=== PATIENT | female | born 1980 | race Caucasian/White ===

== ENCOUNTER 2019-12-27 15:20 | Emergency (ER) | payer BC, SELFPAY ==
[2019-12-27 15:38] VITALS: BP 133/75; PULSE 87; RESP 20; TEMP 36.8; O2SAT 99; BMI 29.8
--- NOTE | 2019-12-27 15:43 | HMH.EDUTC ---
[facility] [place] Clinical Impression: Poison abel dermatitis Disposition: Home, Self-Care Condition on Discharge: Good Instructions: Poisonous Plants: [place], [place], and [place]: Beware the Oils, Poison [place], Poison [place], Poison [place], DI for Poison [place] Allergy, DI for Hives Additional Instructions: Cool compresses may help with itching and irritation from the rash *Over the counter Benadryl may help with itching *Over the counter Calamine lotion may help to dry up the rash and help to clear blisters Return if needed Straight to ER if any life threatening symptoms Follow up with Family doctor if no improvement or if symptoms return Start oral steriods tomorrow Prescriptions: predniSONE [Prednisone 10mg Tab Dose-Pack] 10 mg PO UD DOSE PK 12 Days #42 pack Transmission Status: Received by [facility] Referrals: Kiersten Dan [Primary Care Provider] - As needed Time of Disposition: 16:27 Medical Decision Making - Armando Inquiry Pt receiving controlled substance: No Armando was queried for this patient: No Vital Signs: 12/27/19 15:38 12/27/19 16:02 Temperature 98.2 F 98.2 F Temperature Source Oral Pulse Rate 87 Pulse Rate [Right Brachial] 87 Respiratory Rate 20 20 Blood Pressure 133/75 Blood Pressure [Right Arm] 133/75 Blood Pressure Mean [Right Arm] 94 Blood Pressure Source [Right Arm] Automatic Cuff Blood Pressure Position [Right Arm] Sitting 02 Sat by Pulse Oximetry 99 Oxygen Delivery Method Room Air Orders (Tests/Meds): ED MEDICATIONS Discontinued Medications Generic Name Dose Route Start Last Admin Trade Name Freq PRN Reason Stop Dose Admin Loratadine 10 mg 12/27/19 15:44 12/27/19 15:58 Claritin 10mg Tablet PO 12/27/19 15:45 10 mg ONCE ONE Administration Methylprednisolone Sodium Succinate 125 mg 12/27/19 15:44 12/27/19 15:58 Solu-Medrol 125mg/2ml Vial IM 12/27/19 15:45 125 mg ONCE ONE Administration [facility] [place] - General Stated complaint: poison abel Time Seen by Provider: 12/27/19 15:44 Mode of Arrival: Ambulatory Source of Information: Patient Limitations: No Limitations Description of Symptoms (Recalled from Triage Doc. by RN): PATIENT C/O RASH (POSSIBLE POISON ABEL) TO BILATERAL ARMS AND TRUNK X 2 WEEKS HEENT Symptoms (Recalled from RN notes): No Resp Symptoms (Recalled from RN notes): No Skin Symptoms (Recalled from RN notes): Yes MS Symptoms (Recalled from RN notes): No Functional Status (Recalled from RN notes): WNL - History of Present Illness Provider Complaint: Patient states that she had poison abel about a month ago for over 2 weeks and she had to see PCP for it States that about 2 weeks ago they was clearing the fence line and she noticed she had a couple spots on her right forearm and she started using calamine lotion and treating it with OTC stuff States that for the last several days she noticed she was breaking out again and has continued to get worse States thats that now she has it on both arms, and abdomen and starting to come up her neck - Related Data Previous Rx's Medication Instructions Recorded predniSONE [Prednisone 10mg Tab 10 mg PO UD DOSE PK 12 Days #42 12/27/19 Dose-Pack] pack Allergies Allergy/AdvReac Type Severity Reaction Status Date / Time No Known Allergies Allergy Verified 12/27/19 15:43 - Worker's Comp Is this a Worker's Comp case?: No [facility] History - Hepatitis A Screen Drug use history?: No High risk sexual behaviors?: No History of sexually transmitted infection?: No Currently employed?: No Childcare worker?: No Do you have indoor plumbing?: Yes Do you have electricity?: Yes Attestation statement:: This patient has been screened for Hepatitis A risk factors. I have reviewed the patient's past medical history: Yes Other Medical History: Reports: Sinus Problems Laterality Cases: Bilateral: Tonsillectomy Other Surgeries: Yes: , Sinus Surgery, Tubal Ligation, Other Comment: lith
[2019-12-27 16:02] VITALS: BP 133/75; PULSE 87; RESP 20; TEMP 36.8; O2SAT 99
== END 2019-12-27 16:32 | disposition home or self-care (01) ==
PROVIDERS: Emergency Provider Nurse Practitioner; PCP Family Medicine
DX: L23.7 Allergic contact dermatitis due to plants, except food (principal); Z87.891 Personal history of nicotine dependence; Z90.09 Acquired absence of other part of head and neck
CPT/HCPCS: 96372; 99201

== ENCOUNTER 2020-03-18 18:47 | Emergency (ER) | payer BC, SELFPAY ==
[2020-03-18 19:03] VITALS: BP 153/78; PULSE 73; RESP 16; TEMP 36.6; O2SAT 98; BMI 31.3
--- NOTE | 2020-03-18 19:13 | HMH.EDBACK ---
ED Disposition Clinical Impression: Strain of lumbar region Qualifiers: Encounter type: sequela Qualified Code(s): S39.012S - Strain of muscle, fascia and tendon of lower back, sequela Disposition: Home, Self-Care Condition on Discharge: Good Instructions: DI for Low Back Pain Prescriptions: Cyclobenzaprine HCl [Cyclobenzaprine 5mg Tab] 5 mg PO Q8HP PRN #30 tab PRN Reason: pain/spasm [facility] Ketorolac Tromethamine [Toradol 10mg tablet] 10 mg PO Q6H 5 Days #20 tab [facility]: [facility] Referrals: Kiersten Dan [Primary Care Provider] - - Critical Care Critical Care Time: No Attestation: On 03/18/20, the high probability of a clinically significant, sudden or life threatening deterioration of the following system(s) required my full and direct attention, intervention and personal management. The time I documented below is in addition to time spent performing reported procedures but includes the following listed in this critical care notation. Medical Decision Making - Medical Records Medical records reviewed: Yes: I reviewed the patient's medical records. - Armando Inquiry Pt receiving controlled substance: No Vital Signs: 03/18/20 19:03 Temperature 97.8 F Temperature Source Oral Pulse Rate [Right Brachial] 73 Respiratory Rate 16 Blood Pressure [Right Arm] 153/78 H Blood Pressure Mean [Right Arm] 103 02 Sat by Pulse Oximetry 98 Oxygen Delivery Method Room Air Orders (Tests/Meds): ED MEDICATIONS Generic Name Dose Route Start Last Admin Trade Name Freq PRN Reason Stop Dose Admin Sodium Chloride 1,000 mls @ 999 mls/hr 03/18/20 19:15 03/18/20 19:16 Sod Chlor 0.9% 1000ml Bag IV 03/18/20 20:15 999 mls/hr .Q1H1M REE Administration ORDERS Category Date Time Status CT lumbar spine wo con Stat Cat Scan 03/18/20 19:[address] thoracic spine wo con Stat Cat Scan 03/18/20 19:09 Ordered Basic Metabolic Panel Stat Lab 03/18/20 19:09 Ordered Complete Blood Count Auto Diff Stat Lab 03/18/20 19:09 Ordered Urinalysis and Microscopic Stat Lab 03/18/20 19:09 Ordered Urine , HCG Qual. Stat Lab 03/18/20 19:13 Ordered Back Pain HPI - General Chief Complaint: Back Pain/Injury Stated Complaint: Back spams with back pain Time Seen by Provider: 03/18/20 19:14 Mode of Arrival: Family Vehicle Source of Information: Patient Limitations: No Limitations Description of Symptoms (Recalled from ER Triage Doc. by RN): chronic back pain: pt presents with lumbar area muscle tightness, no known injury - History of Present Illness HPI Narrative: This is a 39-year-old female who presents with 1 week of intermittent low back pain with muscle spasm. She denies any injury or trauma to the low back. Pain goes across the lower back but does not radiate to the lower extremities. Pain is aching and constant improved mildly with deep tissue massage. No paresthesias or numbness no loss of bowel or bladder function. Pain is rated at 7 out of 10 in intensity and is worse with flexion and extension at the lumbar spine. - Related Data Previous Rx's Medication Instructions Recorded predniSONE [Prednisone 10mg Tab 10 mg PO UD DOSE PK 12 Days #42 12/27/19 Dose-Pack] pack Cyclobenzaprine HCl 5 mg PO Q8HP PRN #30 tab 03/18/20 [Cyclobenzaprine 5mg Tab] Ketorolac Tromethamine [Toradol 10 mg PO Q6H 5 Days #20 tab 03/18/20 10mg tablet] Allergies Allergy/AdvReac Type Severity Reaction Status Date / Time No Known Allergies Allergy Verified 12/27/19 15:43 [facility] History - Hepatitis A Screen Drug use history?: No High risk sexual behaviors?: No History of sexually transmitted infection?: No Currently employed?: No Childcare worker?: No Do you have indoor plumbing?: Yes Do you have electricity?: Yes Attestation statement:: This patient has been screened for Hepatitis A risk factors. I have
[2020-03-18 19:23] VITALS: BP 111/71; PULSE 79; RESP 16; TEMP 36.7; O2SAT 97
[2020-03-18 19:35] LABS: Basophils # 0.1 K/mm3 (0-0.2); Basophils % 0.7 % (0.1-2.0); Eosinophils # 0.4 K/mm3 (0.0-0.4); Eosinophils % 4.1 % (0.1-12.0); Hematocrit 41.8 % (37.0-47.0); Hemoglobin 14.1 g/dL (12.2-16.2); Lymphocytes # 2.9 K/mm3 (0.7-4.5); Lymphocytes % 29.5 % (10-50); Mean Corpuscular HGB Conc 33.8 g/dL (31.8-35.4); Mean Corpuscular Hemoglobin 30.5 pg (27.0-31.2); Mean Corpuscular Volume 90.2 fl (81-99); Mean Platelet Volume 7.6 fl (7.4-10.4); Monocytes # 0.6 K/mm3 (0.1-1.0); Neutrophils # 5.8 K/mm3 (1.8-7.8); Neutrophils % 59.7 % (37.0-80.0); Platelet Count 358 K/mm3 (142-424); Red Blood Count 4.63 M/mm3 (4.20-5.40); White Blood Count 9.7 K/mm3 (4.8-10.8)
[2020-03-18 19:43] LABS: Anion Gap 12.6 mEq/L (5-15); Blood Urea Nitrogen 13 mg/dl (7-17); Calcium 9.3 mg/dl (8.4-10.2); Carbon Dioxide 27 mmol/L (22.0-30.0); Chloride 104 mmol/L (98-107); Creatinine Clearance Estimated 189 mL/min (50-200); Estimated Glomerular Filt Rate 112 ml/min (>60); GFR (African American) 136 ML/MIN (>60); Glucose 98 mg/dl (74-100); Potassium 3.6 mmoL/L (3.5-5.1); Sodium 140 mmol/L (136-145)
[2020-03-18 19:49] LABS: HCG Qualitative, Serum Negative (Negative)
== END 2020-03-18 19:41 | disposition home or self-care (01) ==
PROVIDERS: Emergency Medicine; Emergency Provider Emergency Medicine; PCP Family Medicine
DX: S39.012A Strain of muscle, fascia and tendon of lower back, initial encounter (principal); Z87.891 Personal history of nicotine dependence; Z90.09 Acquired absence of other part of head and neck
CPT/HCPCS: 80048; 84703; 85025; 96365; 96375; 99282

== ENCOUNTER 2022-01-26 10:20 | Emergency (ER) | payer BC, SELFPAY ==
[2022-01-26 11:10] VITALS: BP 147/85; PULSE 91; RESP 18; TEMP 37.3; O2SAT 100; BMI 31.2
--- NOTE | 2022-01-26 11:40 | HMH.EDUTC ---
[facility] [place] Disposition Clinical Impression: Bronchitis Sinusitis Qualifiers: Sinusitis location: unspecified location Chronicity: unspecified Qualified Code(s): J32.9 - Chronic sinusitis, unspecified Disposition: Home, Self-Care Condition on Discharge: Good Instructions: Sinusitis, DI for Sinusitis, DI for Acute Bronchitis Additional Instructions: ? Start antibiotic today. Be sure to complete entire prescription even if feeling better ? Monitor temp. Tylenol every 4 hours as needed and / or ibuprofen every 6 hours as needed ( As long as your primary care physician has told you that it ok to take both. For fever/aches/pains ER if no less than 101 despite Tylenol or Motrin ? Humidifier/vaporizer or hot steamy shower ? Inhaler every 4-6 hours as needed like we discussed. If unsure how to use it, ask pharmacist to demonstrate how. Should help open airways and improve cough, wheezing, and shortness of breath ? Mucinex for your cough and chest congestion Be sure to drink lots of water. *Start steroid today. Helps with inflammation therefore, cough and wheezing. Follow directions on the package. Reviewed side effects. Patient reports taking them before. Follow up IMMEDIATELY for new or worsening of symptoms OR no noticeable improvement over the next 48-72 hours. 911 immediately for any life threatening symptoms such as chest pain or difficulty breathing Prescriptions: Albuterol Sulfate [Proventil-HFA 90mcg/puff Inh] 1 - 2 puffs IH Q6HP PRN #1 each PRN Reason: Shortness Of Breath [facility] guaiFENesin [Mucinex 600mg tablet] 1 - 2 tab PO Q12HP PRN #20 tab PRN Reason: Congestion Transmission Status: [facility] Amoxicillin/Potassium Clav [Amox-Clav 875-125 mg Tablet] 1 tab PO BID #20 tab Transmission Status: [facility] predniSONE [Prednisone 20mg Tab] 20 mg PO BID 5 Days #10 tab Transmission Status: [facility] Referrals: Josiah Parker MD [Primary Care Provider] - As needed Time of Disposition: 11:51 Medical Decision Making - Armando Inquiry Pt receiving controlled substance: No Armando was queried for this patient: No Vital Signs: 01/26/22 11:10 Temperature 99.1 F Temperature Source Oral Pulse Rate [Right Brachial] 91 H Respiratory Rate 18 Blood Pressure [Right Arm] 147/85 H Blood Pressure Mean [Right Arm] 105 Blood Pressure Source [Right Arm] Automatic Cuff Blood Pressure Position [Right Arm] Sitting 02 Sat by Pulse Oximetry 100 Oxygen Delivery Method Room Air [facility] [place] HPI - General Stated complaint: cough congestion Time Seen by Provider: 01/26/22 11:40 Mode of Arrival: Ambulatory Source of Information: Patient Limitations: No Limitations Description of Symptoms (Recalled from Triage Doc. by RN): PATIENT C/O COUGHING WITH MUCOUS THAT CAUSES HER TO VOMIT AT TIMES X 1 WEEK HEENT Symptoms (Recalled from RN notes): No Resp Symptoms (Recalled from RN notes): Yes Skin Symptoms (Recalled from RN notes): No MS Symptoms (Recalled from RN notes): No Functional Status (Recalled from RN notes): WNL - History of Present Illness Provider Complaint: Patient states that she has been having sinus pain/pressure with drainage in the back of her throat and cough for about a week States that it feels like it is trying to move into her chest and at times she is coughing so hard it makes her vomit States that today she was having some pressure behind her eyes so she came in to get checked out - Related Data Home Medications Medication Instructions Recorded Confirmed lamoTRIgine [Lamictal 100mg Tablet] 100 mg PO DAILY 01/26/22 01/26/22 norethindrone-e.estradioL-iron [Lo 1 tab PO DAILY 01/26/22 01/26/22 Loestrin Fe 1-10 Tablet] Previous Rx's Medication Instructions Recorded Albuterol Sulfate [Proventil-HFA 1 - 2 puffs IH Q6HP PRN #1 each 01/26/22 90mcg/puff Inh] Amoxicillin/Potassium Clav 1 tab PO
[2022-01-26 12:01] VITALS: BP 119/79; PULSE 79; RESP 20; TEMP 37; O2SAT 100
== END 2022-01-26 12:01 | disposition home or self-care (01) ==
PROVIDERS: Emergency Provider Nurse Practitioner; PCP Family Medicine
DX: J32.9 Chronic sinusitis, unspecified (principal); J20.9 Acute bronchitis, unspecified; Z87.891 Personal history of nicotine dependence
CPT/HCPCS: 99212; G0463

== ENCOUNTER → 2023-07-02 11:15 | Outpatient (CLI) | payer BC, SELFPAY ==
[2023-07-02 09:41] LABS: Basophils # 0.1 K/mm3 (0-0.2); Basophils % 0.9 % (0.1-2.0); Eosinophils # 0.3 K/mm3 (0.0-0.4); Eosinophils % 3.4 % (0.1-12.0); Hematocrit 42.6 % (37.0-47.0); Hemoglobin 14.9 g/dL (12.2-16.2); Lymphocytes # 2.4 K/mm3 (0.7-4.5); Lymphocytes % 28.3 % (10-50); Mean Corpuscular Hemoglobin 32.3 pg (27.0-31.2); Mean Corpuscular Volume 92.2 fl (81-99); Mean Platelet Volume 8.2 fl (7.4-10.4); Monocytes # 0.5 K/mm3 (0.1-1.0); Monocytes % 6.2 % (1.7-9.3); Neutrophils # 5.1 K/mm3 (1.8-7.8); Neutrophils % 61.2 % (37.0-80.0); Platelet Count 431 K/mm3 (142-424); Red Blood Count 4.62 M/mm3 (4.20-5.40); White Blood Count 8.4 K/mm3 (4.8-10.8)
[2023-07-02 11:13] LABS: Alanine Aminotransferase 27 U/L (12-78); Albumin Level 4.1 g/dl (3.5-5.0); Albumin/Globulin Ratio 1.6 (1.1-1.8); Alkaline Phosphatase 53 U/L (38-126); Anion Gap 15.5 mEq/L (5-15); Aspartate Amino Transferase 35 U/L (14-36); Bilirubin,Total 0.2 mg/dl (0.2-1.3); Blood Urea Nitrogen 12 mg/dl (7-17); Carbon Dioxide 21 mmol/L (22.0-30.0); Chloride 105 mmol/L (98-107); Chol/HDL Ratio 4.7 (1-3.5); Cholesterol 201 mg/dl (140-200); Estimated Glomerular Filt Rate 93 ml/min (>60); GFR (African American) 112 ML/MIN (>60); Globulin 2.6 g/dL (1.3-3.2); Glucose 86 mg/dl (74-100); HDL Cholesterol 43 mg/dl (40-60); Potassium 4.5 mmoL/L (3.5-5.1); Sodium 137 mmol/L (136-145); Total Protein,Serum 6.7 g/dl (6.3-8.2); Triglycerides 233 mg/dl (30-150); VLDL Cholesterol 47 mg/dL (0-40)
[2023-07-02 11:24] LABS: Direct LDL Cholesterol 123.83 mg/dL (100-129)
[2023-07-02 11:42] LABS: Thyroid Stimulating Hormone 0.86 uIU/mL (0.465-4.68)
[2023-07-02 11:59] LABS: Hemoglobin A1C 5.3 % (4.0-6.0)
[2023-07-02 12:01] LABS: Vitamin B12 234 pg/mL (239-931)
[2023-07-02 13:12] LABS: Ferritin 20.8 ng/ml (6.24-137)
[2023-07-03 12:32] LABS: C-Peptide 3.4 ng/mL (1.1-4.4)
== END ==
PROVIDERS: PCP Nurse Practitioner Family; Visit Provider Nurse Practitioner Family
DX: E16.2 Hypoglycemia, unspecified (principal); R63.5 Abnormal weight gain; D50.9 Iron deficiency anemia, unspecified; F32.9 Major depressive disorder, single episode, unspecified; Z13.220 Encounter for screening for lipoid disorders; Z68.32 Body mass index [BMI] 32.0-32.9, adult
CPT/HCPCS: 80053; 80061; 82607; 82728; 83036; 83525; 84443; 84681; 85025

== ENCOUNTER → 2023-07-21 08:18 | Outpatient (CLI) | payer BC, SELFPAY ==
[2023-07-21 17:04] LABS: Coronavirus 19, PCR Not Detected (NotDetected); Influenza A, PCR Not Detected (NotDetected); Influenza B, PCR Not Detected (NotDetected)
== END ==
PROVIDERS: PCP Nurse Practitioner Family; Visit Provider Nurse Practitioner Family
DX: R05.9 Cough, unspecified (principal); R09.81 Nasal congestion
CPT/HCPCS: 87636

== ENCOUNTER 2023-09-08 17:05 | Outpatient (CLI) | payer BC, SELFPAY ==
[2023-09-08 20:17] LABS: Vitamin B12 462 pg/mL (239-931)
== END 2023-09-08 23:59 ==
LOC: LAB.DROPOF 17:06
PROVIDERS: PCP Nurse Practitioner Family; Visit Provider Nurse Practitioner Family
DX: R79.89 Other specified abnormal findings of blood chemistry (principal); D50.9 Iron deficiency anemia, unspecified
CPT/HCPCS: 82607

== ENCOUNTER 2023-09-17 16:20 | Outpatient (CLI) | payer BC, SELFPAY ==
--- NOTE | 2023-09-17 16:21 | MM_ITS ---
PROCEDURE INFORMATION: Exam: MG Bilateral Screening 3D Mammography Exam date and time: 09/17/2023 4:11 PM Age: 43 years old Clinical indication: Screening mammogram TECHNIQUE: Imaging protocol: Bilateral Screening tomosynthesis and 2D mammography including computer-aided detection (CAD) when performed. COMPARISON: 1. MG [place] DIAG MAMMO W/CAD RT 08/20/2022 3:31 PM 2. MG [place] SCRN MAMMO W/CAD BILAT 07/30/2022 4:41 PM 3. US BREAST LTD RT 03/27/2023 1:32 PM 4. US BREAST LTD RT 08/20/2022 3:55 PM FINDINGS: MAMMOGRAPHY: Breast composition: There are scattered areas of fibroglandular density. Mass: None. Architectural distortion: No new or suspicious architectural distortion. Calcifications: No new or suspicious calcifications are present Asymmetric density: No new or suspicious asymmetric density is present Skin thickening: None. Axillary adenopathy: None. IMPRESSION: No mammographic evidence of malignancy. Recommend annual screening mammography unless otherwise clinically indicated. ASSESSMENT: BI-RADS category 1: Negative
== END 2023-09-17 23:59 ==
LOC: RAD 16:21
PROVIDERS: PCP Nurse Practitioner Family; Visit Provider Nurse Practitioner Family
DX: Z12.39 Encounter for other screening for malignant neoplasm of breast (principal)
CPT/HCPCS: 77063; 77067

== ENCOUNTER 2023-11-04 21:02 | Outpatient (CLI) | payer BC, SELFPAY ==
[2023-11-04 18:16] LABS: Vitamin B12 441 pg/mL (239-931)
== END 2023-11-04 23:59 ==
LOC: LAB.DROPOF 21:02
PROVIDERS: PCP Nurse Practitioner Family; Visit Provider Nurse Practitioner Family
DX: R79.89 Other specified abnormal findings of blood chemistry (principal); Z79.899 Other long term (current) drug therapy
CPT/HCPCS: 82607

== ENCOUNTER 2023-11-17 16:47 | Outpatient (CLI) | payer BC, SELFPAY | END 2023-11-17 23:59 | LOC: LAB.DROPOF 16:49 | PROVIDERS: PCP Nurse Practitioner Family; Visit Provider Nurse Practitioner Family | DX: R39.15 Urgency of urination (principal); B96.89 Other specified bacterial agents as the cause of diseases classified elsewhere | CPT/HCPCS: 87086 ==

== ENCOUNTER 2023-12-03 13:55 | Outpatient (CLI) | payer OTHER, BC, SELFPAY ==
--- NOTE | 2023-12-03 13:56 | US_ITS ---
FINAL REPORT CLINICAL HISTORY: R31.0 - Gross hematuria COMPARISON: None FINDINGS: RENAL ULTRASOUND: The right kidney measures 11.7 cm in length. There is no evidence of focal mass or hydronephrosis in the right kidney. No perinephric fluid collections are identified. The left kidney measures 13.6 cm in size. There is an echogenic focus with posterior acoustical shadowing in the left kidney, 6 mm in size, likely a nonobstructing renal stone. IMPRESSION: No evidence of hydronephrosis. There is an echogenic focus in the left kidney, 6 mm in size, most likely a nonobstructing renal stone. Reviewed, Interpreted and Dictated by Miguelito Palma III, MD Transcribed by Love Lawson Authenticated and [facility]
--- NOTE | 2023-12-03 13:56 | US_ITS ---
FINAL REPORT CLINICAL HISTORY: Gross hematuria COMPARISON: None FINDINGS: BLADDER ULTRASOUND: Ultrasound examination of the distended bladder feels a maximum width of 8.4 cm. The bladder volume at distention is 197.99 cc. No focal masses are identified, no focal bladder wall thickening is present. Jets are seen during voiding, and the postvoid bladder volume is 18.22 cc. IMPRESSION: No focal mass is seen within the bladder, with postvoid volume as noted. Reviewed, Interpreted and Dictated by Miguelito Palma III, MD Transcribed by Love Lawson Authenticated and [facility]
== END 2023-12-03 23:59 ==
LOC: RAD 13:56
PROVIDERS: PCP Nurse Practitioner Family; Visit Provider Nurse Practitioner Family
DX: R31.0 Gross hematuria (principal)
CPT/HCPCS: 76770; 76857

== ENCOUNTER 2023-12-14 15:13 | Outpatient (CLI) | payer BC, OTHER, SELFPAY ==
--- NOTE | 2023-12-14 15:17 | US_ITS ---
PROCEDURE: US TRANSVAGINAL CLINICAL INDICATION: pelvic pain COMPARISON: No exams were available for comparison FINDINGS: Transvaginal and transabdominal sonographic images of the pelvis were obtained. UTERUS: 10.0cm x 5.5cmx 4.4cm anteverted with a combined endometrial thickness of 9.7mm. LEFT OVARY: 2.9 cmx2.4cmx2.7cm with a volume of 9.6ml. RIGHT OVARY: 1.7 cmx 2.7 cmx1.4cm with a volume of 3ml. Both ovaries are seen and appear normal. Doppler flow to both ovaries are seen. There is no fluid in the cul-de-sac. IMPRESSION: 1. Anteverted uterus normal in shape and size. 2. The endometrium is normal and measures 9.7 mm. 3. Difficult exam and the ovaries could not be seen transvaginally. Transabdominally the ovaries appear normal. 4. No fluid in the cul-de-sac. Dictated by: Brody Villarreal MD 12/14/2023 19:23 Brody Villarreal MD in OV 12/14/2023 19:23
== END 2023-12-14 23:59 | disposition home or self-care (01) ==
LOC: RAD 15:14
PROVIDERS: PCP Nurse Practitioner Family; Visit Provider Nurse Practitioner Family
DX: R10.2 Pelvic and perineal pain (principal)
CPT/HCPCS: 76830

== ENCOUNTER 2024-01-06 15:58 | Outpatient (POV) | payer BC, OTHER, SELFPAY | END 2024-01-06 23:59 | disposition home or self-care (01) | LOC: SC 15:58 | PROVIDERS: Visit Provider Specialist/Technologist | DX: Z00.00 Encounter for general adult medical examination without abnormal findings (principal) ==

== ENCOUNTER 2024-04-16 09:20 | Outpatient (CLI) | payer BC, OTHER, SELFPAY ==
[2024-04-16 09:34] LABS: Basophils # 0.1 K/mm3 (0-0.2); Basophils % 1.8 % (0.1-2.0); Eosinophils # 0.2 K/mm3 (0.0-0.4); Eosinophils % 2.7 % (0.1-12.0); Hematocrit 45.2 % (37.0-47.0); Hemoglobin 14.5 g/dL (12.2-16.2); Lymphocytes # 2.2 K/mm3 (0.7-4.5); Lymphocytes % 32.6 % (10-50); Mean Corpuscular Hemoglobin 30.2 pg (27.0-31.2); Mean Corpuscular Volume 94.4 fl (81-99); Monocytes # 0.5 K/mm3 (0.1-1.0); Monocytes % 6.8 % (1.7-9.3); Neutrophils # 3.8 K/mm3 (1.8-7.8); Neutrophils % 56.1 % (37.0-80.0); Platelet Count 420 K/mm3 (142-424); Red Blood Count 4.79 M/mm3 (4.20-5.40); Red Cell Distribution Width 13.2 % (11.5-17.5); White Blood Count 6.9 K/mm3 (4.8-10.8)
[2024-04-16 10:17] LABS: Albumin Level 4.1 g/dl (3.5-5.0); Chloride 105 mmol/L (98-107); Potassium 4.2 mmoL/L (3.5-5.1); Sodium 138 mmol/L (136-145)
[2024-04-16 10:20] LABS: Alanine Aminotransferase 31 U/L (12-78); Albumin/Globulin Ratio 1.6 (1.1-1.8); Alkaline Phosphatase 60 U/L (38-126); Anion Gap 10.2 mEq/L (5-15); Aspartate Amino Transferase 29 U/L (14-36); Bilirubin,Total 0.5 mg/dl (0.2-1.3); Blood Urea Nitrogen 13 mg/dl (7-17); Calcium 8.9 mg/dl (8.4-10.2); Carbon Dioxide 27 mmol/L (22.0-30.0); Estimated Glomerular Filt Rate 79 ml/min (>60); GFR (African American) 96 ML/MIN (>60); Globulin 2.6 g/dL (1.3-3.2); Glucose 81 mg/dl (74-100); Total Protein,Serum 6.7 g/dl (6.3-8.2)
[2024-04-16 11:53] LABS: Thyroid Stimulating Hormone 0.35 uIU/mL (0.465-4.68)
[2024-04-16 12:27] LABS: Ferritin 17.7 ng/ml (6.24-137)
[2024-04-16 13:12] LABS: Vitamin B12 377 pg/mL (239-931)
[2024-04-19 14:28] LABS: Free T4 (Free Thyroxine) 1.09 ng/dl (0.78-2.19)
== END 2024-04-16 23:59 | disposition home or self-care (01) ==
LOC: LAB 09:20
PROVIDERS: PCP Nurse Practitioner Family; Visit Provider Nurse Practitioner Family
DX: L65.9 Nonscarring hair loss, unspecified (principal); R79.89 Other specified abnormal findings of blood chemistry
CPT/HCPCS: 36415; 80053; 82607; 82728; 84439; 84443; 85025; 86140

== ENCOUNTER 2024-08-23 09:46 | Outpatient (CLI) | payer BC, OTHER, SELFPAY ==
[2024-08-23 12:35] LABS: Coronavirus 19, PCR Not Detected (NotDetected); Influenza B, PCR Not Detected (NotDetected)
[2024-08-23 17:58] LABS: Influenza A, PCR Detected (NotDetected)
== END 2024-08-23 23:59 | disposition home or self-care (01) ==
LOC: LAB.DROPOF 08-25 09:32
PROVIDERS: PCP Student in an Organized Health Care Education/Training Program; Visit Provider Student in an Organized Health Care Education/Training Program
DX: J09.X9 Influenza due to identified novel influenza A virus with other manifestations (principal); Z20.818 Contact with and (suspected) exposure to other bacterial communicable diseases; R05.1 Acute cough; Z87.891 Personal history of nicotine dependence
CPT/HCPCS: 87070; 87636

== ENCOUNTER 2024-09-23 13:31 | Outpatient (CLI) | payer BC, OTHER, SELFPAY ==
[2024-09-23 13:40] LABS: Uric Acid 2.4 mg/dl (2.5-6.2)
[2024-09-23 14:06] LABS: 25-OH Vitamin D, Total 36.9 ng/mL (30-100)
[2024-09-23 14:22] LABS: Erythrocyte Sedimentation Rate 11 mm/hr (0-20)
[2024-09-24 08:21] LABS: RA Latex Turbid. <10.0 IU/mL (<14.0)
[2024-09-27 11:10] LABS: Antinuclear Antibodies, IFA Negative (.)
== END 2024-09-23 23:59 | disposition home or self-care (01) ==
LOC: LAB.DROPOF 13:31
PROVIDERS: PCP Nurse Practitioner Family; Visit Provider Nurse Practitioner Family
DX: M25.50 Pain in unspecified joint (principal); E55.9 Vitamin D deficiency, unspecified; R63.5 Abnormal weight gain
CPT/HCPCS: 36415; 82306; 84550; 85651; 86038; 86431

== ENCOUNTER 2024-10-10 16:43 | Outpatient (CLI) | payer BC, OTHER, SELFPAY ==
--- NOTE | 2024-10-10 16:45 | MM_ITS ---
PROCEDURE INFORMATION: Exam: MG Bilateral Screening 3D Mammography Exam date and time: 10/10/2024 4:48 PM Age: 44 years old Clinical indication: Screening examination TECHNIQUE: Imaging protocol: Bilateral Screening tomosynthesis and 2D mammography including computer-aided detection (CAD) when performed. COMPARISON: 1. MG MM DIG SCREENING MAMM BI W/CAD 09/17/2023 4:11 PM 2. MG [place] DIAG MAMMO W/CAD RT 08/20/2022 3:31 PM FINDINGS: MAMMOGRAPHY: Breast composition: There are scattered areas of fibroglandular density. Mass: None. Architectural distortion: None. Calcifications: No suspicious calcifications. Asymmetric density: None. Skin thickening: None. Axillary adenopathy: None. IMPRESSION: No mammographic evidence of malignancy. Annual screening is recommended unless otherwise clinically indicated. ASSESSMENT: BI-RADS Category 1: Negative.
== END 2024-10-10 23:59 | disposition home or self-care (01) ==
LOC: RAD 16:45
PROVIDERS: PCP Nurse Practitioner Family; Visit Provider Nurse Practitioner Family
DX: Z12.31 Encounter for screening mammogram for malignant neoplasm of breast (principal)
CPT/HCPCS: 77063; 77067

== ENCOUNTER 2024-12-14 15:35 | Outpatient (CLI) | payer BC, OTHER, SELFPAY ==
--- OUTSIDE RECORDS SUMMARY | 2024-12-15 09:06 | XMS_ITS | Data Portability ---
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 Plan of Treatment Reminders Order Date Submit Date Provider Last Modified By Organization Details Last Modified Time Details Appointments None recorded. Lab urinalysis, dipstick 2023 024 [email or web address] [facility] [address], [address], 4 11:53:51 influenza virus A + B + SARS-CoV-2 (COVID19) Ag panel, rapid IA, upper respiratory specimen 2022 [email or web address], [place], [address], 3 09:02:35 rapid flu (A+B) 2021 022 [email or web address], [place], [address], 2 09:54:46 Referral None recorded. Procedures bladder scan (PROC) 2023 024 [email or web address] [facility] [address], [address], 4 11:53:51 Surgeries None recorded. Imaging None recorded. Medication Orders Gemtesa 75 mg tablet 2023 024 [email or web address] [facility], [address] [facility], [place], [address], 4 22:06:04 dicyclomine 10 mg capsule 2022 023 [email or web address] [facility] 5[facility], [address], [address], 4 09:09:25 Zofran 4 mg tablet 2022 023 [email or web address] [facility]91, [address], [address], 3 08:43:33 Patient TargetsNo targets recorded. Patient InstructionsNo instructions recorded. Reason for Referral None Reported. Results Created Date Observation Date Name Description Value Unit Range Abnormal Flag Note LastModifiedBy Organization Detail LastModifiedTime 08/04/20 22 08/04/2022 rapid flu (A+B) Flu A negati ve Not Available [address], [place], [address], 08/04/2022 08:38:05 08/04/20 22 08/04/2022 rapid flu (A+B) Flu B negati ve Not Available [address], [place], [address], 08/04/2022 08:38:05 12/09/19 23 12/08/2022 influ iraida virus A + B + SARS- CoV-2 (COVI D19) Ag panel , rapid IA, upper respi rator y speci men FLU A negati ve Not Available [address], [place], [address], 12/08/2022 08:42:26 12/09/19 12/08/2022 influ iraida virus A + B + SARS- CoV-2 (COVI D19) Ag panel , rapid IA, upper respi rator y speci men FLU B negati ve Not Available [facility] [address] [facility] [address], [place], [address], 12/08/2022 08:42:26 12/09/19 23 12/08/2022 influ iraida virus A + B + SARS- CoV-2 (COVI D19) Ag panel , rapid IA, upper respi rator y speci men SARS COV + SARS OV 2 negati ve Not Available [facility] [address] [facility] [address], [place], [address], 12/08/2022 08:42:26 12/10/19 23 12/09/2022 GASTR OINTE JANINE L PANEL ,STL PCR campylobacte r NOT DETECT ED not detect ed CAMPY LOBAC TER AND CRYPT OSPOR IDIUM RESUL TS WILL BE CONFI RMED BEFOR E FINAL RESUL TS REPOR DELMY. Not Available [facility] [address] [facility], [place], [address], 12/09/2022 13:13:35 12/10/19 23 12/09/2022 GASTR OINTE JANINE L PANEL ,STL PCR C difficile toxin A/B NOT DETECT ED not detect ed Not Available [facility] [address] [facility], [place], [address], 12/09/2022 13:13:35 12/10/19 23 12/09/2022 GASTR OINTE JANINE L PANEL ,STL PCR plesiomonas shigelloides NOT DETECT ED Not Available [facility] [address] [facility], [place], [address], 12/09/2022 13:13:35 12/10/19 23 12/09/2022 GASTR OINTE JANINE L PANEL ,STL PCR salmonella DETECT ED not detect ed delta Not Available [facility] [address] [facility], [place], [address], 12/09/2022 13:13:35 12/10/19 23 12/09/2022 GASTR OINTE JANINE L PANEL ,STL PCR vibrio NOT DETECT ED not detect ed Not Available [facility] [address] [facility], [place], [address], 12/09/2022 13:13:35 12/10/19 23 12/09/2022 GASTR OINTE JANINE L PANEL ,STL PCR vibrio cholerae NOT DETECT ED not detect ed Not Available [facility] [address] [facility], [place], [address], 12/09/2022 13:13:35 12/10/19 23 12/09/2022 GASTR OINTE JANINE L PANEL ,STL PCR yersinia enterocoliti ca NOT DETECT ED not detect ed Not Available [facility] [address] [facility], [place], [address], 12/09/2022 13:13:35 12/10/19 23 12/09/2022 GASTR OINTE JANINE L PANEL ,STL PCR enteroaggreg ative E coli NOT DETECT ED not detect ed Not Available [facility] [address] [facility], [place], [address], 12/09/2022 13:13:35 12/10/19 23 12/09/2022 GASTR OINTE JANINE L PANEL ,STL PCR enteropathog enic E coli NOT DETECT ED not detect ed Not Available [facility] [address] [facility], [place], [address], 12/09/2022 13:13:35 12/10/19 23 12/09/2022 GASTR OINTE JANINE L PANEL ,STL PCR enterotoxige tara E coli lt/st NOT DETECT ED not detect ed Not Available [facility] [address] [facility], [place], [address], 12/09/2022 13:13:35 12/10/19 23 12/09/2022 GASTR OINTE JANINE L PANEL ,STL PCR shiga-toxin- producing E coli NOT DETECT ED not detect ed Not Available [facility] [address] [facility], [place], [address], 12/09/2022 13:13:35 12/10/19 23 12/09/2022 GASTR OINTE JANINE L PANEL ,STL PCR E coli O157 N/A not detect ed Not Available [facility] [address] [facility], [place], [address], 12/09/2022 13:13:35 12/10/19 23 12/09/2022 GASTR OINTE JANINE L PANEL ,STL PCR shigella/ent eroinvasive E coli NOT DETECT ED not detect ed Not Available [facility] [address] [facility], [place], [address], 12/09/2022 13:13:35 12/10/19 23 12/09/2022 GASTR OINTE JANINE L PANEL ,STL PCR cryptosporid ium NOT DETECT ED not detect ed Not Available [facility] [address] [facility], [place], [address], 12/09/2022 13:13:35 12/10/19 23 12/09/2022 GASTR OINTE JANINE L PANEL ,STL PCR cyclospora cayetanensis NOT DETECT ED not detect ed Not Available [facility] [address] [facility], [place], [address], 12/09/2022 13:13:35 12/10/19 23 12/09/2022 GASTR OINTE JANINE L PANEL ,STL PCR entamoeba histolytica NOT DETECT ED not detect ed Not Available [facility] [address] [facility], [place], [address], 12/09/2022 13:13:35 12/10/19 23 12/09/2022 GASTR OINTE JANINE L PANEL ,STL PCR giardia lamblia NOT DETECT ED not detect ed Not Available [facility] [address] [facility], [place], [address], 12/09/2022 13:13:35 12/10/19 23 12/09/2022 GASTR OINTE JANINE L PANEL ,STL PCR adenovirus F 40/41 NOT DETECT ED not detect ed Not Available [facility] [address] [facility], [place], [address], 12/09/2022 13:13:35 12/10/19 23 12/09/2022 GASTR OINTE JANINE L PANEL ,STL PCR astrovirus NOT DETECT ED not detect ed Not Available [facility] [address] [facility], [place], [address], 12/09/2022 13:13:35 12/10/19 23 12/09/2022 GASTR OINTE JANINE L PANEL ,STL PCR norovirus GI/gii NOT DETECT ED not detect ed Not Available [facility] [address] [facility], [place], [address], 12/09/2022 13:13:35 12/10/19 23 12/09/2022 GASTR OINTE JANINE L PANEL ,STL PCR rotavirus A NOT DETECT ED not detect ed Not Available [facility] [address] [facility], [place], [address], 12/09/2022 13:13:35 12/10/19 23 12/09/2022 GASTR OINTE JANINE L PANEL ,STL PCR sapovirus NOT DETECT ED not detect ed Test Metho d Limit ation s: This assay does not disti nguis h betwe en viabl e and non-v iable organ isms/ This test does not deter mine antib iotic susce ptibi litie s. The use of forme d or conta minat ed stool sampl es are not recom hue d. Bradford eous resul ts may occur from impro per speci men colle ction , handl ing or stora ge, prese nce of inhib itors , prese nce of seque nce varia nts in the gene targe ts of the assay , techn ical error s or sampl e mix-u p. Posit mitchel C.dif ficil e resul ts may not be clini montserrat relev ant in child leonel under the age of two. Consu ltati on with an Infec tious Disea se Pedia trici an is recom hue d. Test Metho dolog y: BioFi re FilmA rray GI Panel - Melti ng curve izabel sis, PCR, multi plex, rever se trans cript ase Not Available [facility] [address] [facility], [place], [address], 12/09/2022 13:13:35 12/24/19 23 12/23/2022 GASTR OINTE JANINE L PANEL ,STL PCR campylobacte r NOT DETECT ED not detect ed CAMPY LOBAC TER AND CRYPT OSPOR IDIUM RESUL TS WILL BE CONFI RMED BEFOR E FINAL RESUL TS REPOR DELMY. Not Available [facility] [address] [facility], [place], [address], 12/23/2022 11:47:45 12/24/19 23 12/23/2022 GASTR OINTE JANINE L PANEL ,STL PCR C difficile toxin A/B DETECT ED not detect ed delta Not Available [facility] [address] [place], [address], 12/23/2022 11:47:45 12/24/19 23 12/23/2022 GASTR OINTE JANINE L PANEL ,STL PCR plesiomonas shigelloides NOT DETECT ED Not Available [facility] [address] [facility], [place], [address], 12/23/2022 11:47:45 12/24/19 23 12/23/2022 GASTR OINTE JANINE L PANEL ,STL PCR salmonella DETECT ED not detect ed delta Not Available [facility] [address] [facility], [place], [address], 12/23/2022 11:47:45 12/24/19 23 12/23/2022 GASTR OINTE JANINE L PANEL ,STL PCR vibrio NOT DETECT ED not detect ed Not Available [facility] [address] [facility], [place], [address], 12/23/2022 11:47:45 12/24/19 23 12/23/2022 GASTR OINTE JANINE L PANEL ,STL PCR vibrio cholerae NOT DETECT ED not detect ed Not Available [facility] [address] [facility], [place], [address], 12/23/2022 11:47:45 12/24/19 23 12/23/2022 GASTR OINTE JANINE L PANEL ,STL PCR yersinia enterocoliti ca NOT DETECT ED not detect ed Not Available [facility] [address] [facility], [place], [address], 12/23/2022 11:47:45 12/24/19 23 12/23/2022 GASTR OINTE JANINE L PANEL ,STL PCR enteroaggreg ative E coli NOT DETECT ED not detect ed Not Available [facility] [address] [place], [address], 12/23/2022 11:47:45 12/24/19 23 12/23/2022 GASTR OINTE JANINE L PANEL ,STL PCR enteropathog enic E coli NOT DETECT ED not detect ed Not Available [facility] [address] [facility], [place], [address], 12/23/2022 11:47:45 12/24/19 23 12/23/2022 GASTR OINTE JANINE L PANEL ,STL PCR enterotoxige tara E coli lt/st NOT DETECT ED not detect ed Not Available [facility] [address] [facility], [place], [address], 12/23/2022 11:47:45 12/24/19 23 12/23/2022 GASTR OINTE JANINE L PANEL ,STL PCR shiga-toxin- producing E coli NOT DETECT ED not detect ed Not Available [facility] [address] [facility], [place], [address], 12/23/2022 11:47:45 12/24/19 23 12/23/2022 GASTR OINTE JANINE L PANEL ,STL PCR E coli O157 N/A not detect ed Not Available [facility] [address] [facility], [place], [address], 12/23/2022 11:47:45 12/24/19 23 12/23/2022 GASTR OINTE JANINE L PANEL ,STL PCR shigella/ent eroinvasive E coli NOT DETECT ED not detect ed Not Available [facility] [address] [facility], [place], [address], 12/23/2022 11:47:45 12/24/19 23 12/23/2022 GASTR OINTE JANINE L PANEL ,STL PCR cryptosporid ium NOT DETECT ED not detect ed Not Available [facility] [address] [place], [address], 12/23/2022 11:47:45 12/24/19 23 12/23/2022 GASTR OINTE JANINE L PANEL ,STL PCR cyclospora cayetanensis NOT DETECT ED not detect ed Not Available [facility] [address] [place], [address], 12/23/2022 11:47:45 12/24/19 23 12/23/2022 GASTR OINTE JANINE L PANEL ,STL PCR entamoeba histolytica NOT DETECT ED not detect ed Not Available [facility] [address] [facility], [place], [address], 12/23/2022 11:47:45 12/24/19 23 12/23/2022 GASTR OINTE JANINE L PANEL ,STL PCR giardia lamblia NOT DETECT ED not detect ed Not Available [facility] [address] [facility], [place], [address], 12/23/2022 11:47:45 12/24/19 23 12/23/2022 GASTR OINTE JANINE L PANEL ,STL PCR adenovirus F 40/41 NOT DETECT ED not detect ed Not Available [facility] [address] [facility], [place], [address], 12/23/2022 11:47:45 12/24/19 23 12/23/2022 GASTR OINTE JANINE L PANEL ,STL PCR astrovirus NOT DETECT ED not detect ed Not Available [facility] [address] [facility], [place], [address], 12/23/2022 11:47:45 12/24/19 23 12/23/2022 GASTR OINTE JANINE L PANEL ,STL PCR norovirus GI/gii NOT DETECT ED not detect ed Not Available [facility] [address] [facility], [place], [address], 12/23/2022 11:47:45 12/24/19 23 12/23/2022 GASTR OINTE JANINE L PANEL ,STL PCR rotavirus A NOT DETECT ED not detect ed Not Available [facility] [address] [facility], [place], [address], 12/23/2022 11:47:45 12/24/19 23 12/23/2022 GASTR OINTE JANINE L PANEL ,STL PCR sapovirus NOT DETECT ED not detect ed Test Metho d Limit ation s: This assay does not disti nguis h betwe en viabl e and non-v iable organ isms/ This test does not deter mine antib iotic susce ptibi litie s. The use of forme d or conta minat ed stool sampl es are not recom hue d. Bradford eous resul ts may occur from impro per speci men colle ction , handl ing or stora ge, prese nce of inhib itors , prese nce of seque nce varia nts in the gene targe ts of the assay , techn ical error s or sampl e mix-u p. Posit mitchel C.dif ficil e resul ts may not be clini montserrat relev ant in child leonel under the age of two. Consu ltati on with an Infec tious Disea se Pedia trici an is recom hue d. Test Metho dolog y: BioFi re FilmA rray GI Panel - Melti ng curve izabel sis, PCR, multi plex, rever se trans cript ase Not Available [facility] [address] [facility], [place], [address], 12/23/2022 11:47:45 12/24/19 23 12/23/2022 C. DIFF TOXIN , PCR C diff lot # [id number] Not Available [facility] [address] [place], [address], 12/23/2022 14:03:13 12/24/19 23 12/23/2022 C. DIFF TOXIN , PCR C diff exp date 2022 Not Available [facility] [address] [facility], [place], [address], 12/23/2022 14:03:13 12/24/19 23 12/23/2022 C. DIFF TOXIN , PCR spc control VALID valid Not Available [facility] [address] [facility], [place], [address], 12/23/2022 14:03:13 12/24/19 23 12/23/2022 C. DIFF TOXIN , PCR C. diff toxin, PCR POSITI VE negati ve delta Test Metho dolog y: bpHDA ampli ficat ion Test Metho d Limit ation s: This assay does not disti nguis h betwe en viabl e and non-v iable organ isms/ This test does not deter mine sensi tivit y to antib iotic s/ The use of forme d or conta minat ed stool sampl es are not recom hue d /Erro neous test resul ts may occur from impro per speci men colle ction , handl ing or stora ge, prese nce of inhib itors , techn ical error s or sampl e mix-u p/Mut ation s or polym orphi sms in prime r or probe rickey ng regio ns may affec t detec tion of new or unkno wn varia nts resul ting in a false negat mitchel/G eneti c rearr angem ents, trans locat ions, or delet ions in some varia nts may cause false posit mitchel resul ts/ This assay has not been evalu ated in patie nts <2 years of age. Not Available [facility] [address] [facility], [place], [address], 12/23/2022 14:03:13 12/24/19 23 12/29/2022 O ova + parasite exam Final report These resul ts were obtai hugo using wet prepa ratio n(s) and trich aiden stain ed smear . This test does not inclu de testi ng for Crypt ospor idium parvu m, Cyclo spora , or Micro spori obie. Not Available [facility] [address], [place], [address], 12/29/2022 17:09:37 12/24/19 23 12/29/2022 O result 1 Commen t No ova, cysts , or waqas ites seen. . One negat mitchel speci men does not rule out the possi bilit y of a waqas itic infec tion. Perfo rmed at: [facility] n [address] [facility], [place] [id number] Lab Direc tor: Jimmy gannon PhD, Phone : [phone] Not Available [facility] [address] [facility], [place], [address], 12/29/2022 17:09:37 12/18/19 24 12/18/2023 urina lysis , dipst ick Leukocytes (reference range) negati ve Not Available [address], [address], 12/18/2023 09:52:56 12/18/19 24 12/18/2023 urina lysis , dipst ick Nitrite (reference range:) negati ve Not Available [address], [address], 12/18/2023 09:52:56 12/18/19 24 12/18/2023 urina lysis , dipst ick Urobilinogen (reference range) 0.2 Not Available [address], [address], 12/18/2023 09:52:56 12/18/19 24 12/18/2023 urina lysis , dipst ick Protein (reference range) negati ve Not Available [address], [address], 12/18/2023 09:52:56 12/18/19 24 12/18/2023 urina lysis , dipst ick pH (reference range 5-8.5) 7.0 Not Available [address], [address], 12/18/2023 09:52:56 12/18/19 24 12/18/2023 urina lysis , dipst ick Blood (reference range:) small Not Available [address], [address], 12/18/2023 09:52:56 12/18/19 24 12/18/2023 urina lysis , dipst ick Specific [place] (reference range) 1.020 Not Available [address], [address], 12/18/2023 09:52:56 12/18/19 24 12/18/2023 urina lysis , dipst ick Ketone (reference range) negati ve Not Available [address], [address], 12/18/2023 09:52:56 12/18/19 24 12/18/2023 urina lysis , dipst ick Bilirubin (reference range) negati ve Not Available [address], [address], 12/18/2023 09:52:56 12/18/19 24 12/18/2023 urina lysis , dipst ick Glucose (reference range) negati ve Not Available [address], [address], 12/18/2023 09:52:56 12/18/19 24 12/18/2023 bladd er scan (PROC ) Calculated Residual Urine: 060 ml Not Available [address], [address], 12/18/2023 09:52:57 07/31/20 22 07/30/2022 [facility]olina scrn mammo w/CAD bilat [facility] [address] [place] [address] Phone: Fax: Name: ERIN RAWLS Exam Date: 2021 : 982 Age 42 Gender : F Access ion: [id number] Physic mario: José Luis Jama Facili ty: [facility] Facili ty HSV: Outpat ient Exam: CAROLINA SCRN MAMMO W/CAD BILAT MAMMOG JEFFERY SCREEN ING BILATE RAL HISTOR Y: Routin e screen ing exam COMPAR EVERARDO: None, Baseli ne exam TECHNI QUE: Standa rd digita l 2-D views with 3-D tomosy nthesi s DENSIT Y: There are scatte red areas of fibrog landul ar densit y FINDIN GS: Upper inner right breast focal asymme try. Outer right breast asymme try visual ized on CC view only. IMPRES MERA: Upper inner right breast focal asymme try outer right breast asymme try requir ing additi onal spot compre ssion views and possib le ultras ound. BI-RAD S 0: Incomp lete, needs additi onal imagin g evalua tion RECOMM ENDATI ON: Additi onal imagin g of the right breast is requir ed. Routin e annual screen ing mammog dolly for the left breast . CAD was utiliz ed during interp retati on. The patien t will be sent a letter from the mammog dolly depart ment with their mammog dolly result s. Dictat ed By: Parag Muhammad Transc ribshira By: Parag Ramsey Transc ribed On: 1:14 PM Electr onical ly signed by: Parag Muhammad Thank you for referr ERIN Kramer to [facility]. Legall y authen ticate d by MICHELLE FRANCIS 2021-08 13:14: 57 CC'ed Logic: Orderi ng Provid er: ALEXANDER ORDONEZ CC Provid er: ALEXANDER ORDONEZ Attend ing Provid er: ALEXANDER ORDONEZ Referr ing Provid er: ALEXANDER ORDONEZ Admitt ing Provid er: ALEXANDER ORDONEZ [facility] [address] , [place], [address], 08/01/2022 12:31:29 07/31/20 22 07/30/2022 MAMMO , scree suhail, digit al, bilat eral No observ ation record ed. [email or web address] [facility] [address], [place], [address], 08/01/2022 12:31:18 03/27/20 23 03/27/2023 US, bremartha t, bonifacio teral , limit ed [facility] [address] [place] [address] Phone: Fax: Name: ERIN RAWLS Exam Date: : 9[birth year] Age 42 Gender : F Access ion: [id number] Physic mario: Solis Simmons Facili ty: [facility] Facili ty HSV: Outpat ient Exam: US BREAST LTD RT RIGHT BREAST ULTRAS OUND HISTOR Y:6 months follow -up FINDIN GS: No cystic or solid mass is presen t. Echote xture is unrema rkable . IMPRES MERA: No discre te mass BI-RAD S 2: Benign RECOMM ENDATI ON: Annual mammog dolly Dictat ed By: Parag Muhammad Transc ribed By: Parag Ramsey Transc ribed On: 023 5:07 PM Electr onical ly signed by: Parag Muhammad 023 Thank you for referr ERIN Kramer to [facility]. Legall y authen ticate d by MICHELLE FRANCIS 03-27 17:07: 39 CC'ed Logic: Orderi ng Provid er: MOE SALAZAR CC Provid er: ALEXANDER ORDONEZ Attend ing Provid er: MOE SALAZAR Admitt ing Provid er: MOE SALAZAR [email or web address] [facility] [address], [place], [address], 03/30/2023 06:20:19 Result Notes None recorded. Problems Name Problem SNOMED Code Status Onset Date Resolution Date Notes Provider Name and Address Organization Details Recorded Time Diarrhea 13999915 Active 2022 Not Available [facility] 3 10:50:21 Salmonella gastroenterit is 34329914 Active 2022 Not Available [facility] 3 10:50:21 Candidal vulvovaginiti s 78345616 Active 2022 Not Available [facility] 3 10:50:21 Diarrhea of presumed infectious origin 77404217 Active 2022 Not Available [facility] 3 10:50:21 Clostridioide s difficile infection 882727142 Active 2022 Not Available [facility] 3 10:50:21 Allergic rhinitis 59427262 Active 2022 Not Available [facility] 3 10:50:21 Problem Notes None recorded. Procedures Surgical History Date Name Laterality Status Provider Name and Address Organization Details Recorded Time 11/08/19 23 Sinus Endoscopy completed Mehran Landin [place] - [facility] - [place] [facility] [place] 11/07/2022 14:32:09 10/10/19 23 Clarifx Procedure completed Marianela Rose MD [address] [place] [address], [place], [address], [place] [facility] [place] [facility] [place] 10/23/2022 15:46:29 07/04/20 22 completed Abidahermila Keenan [place] [facility] [place] [facility] [place] 11/07/2022 14:18:06 08/31/19 22 Date of Last Pap Smear completed Abida Ree [place] [facility] [place] [facility] [place] 11/07/2022 14:18:06 01/30/20 17 Date of Last Colonoscopy completed Abida Keenan [place] [facility] [place] [facility] [place] 11/07/2022 14:18:06 08/31/19 17 Colonoscopy completed Abidahermila Keenan [place] [facility] [place] [facility] [place] 11/07/2022 08:52:47 08/31/19 07 ENT Surgery completed Abidahermila Delgadoence [place] [facility] [place] [facility] [place] 11/07/2022 08:52:47 01/01/20 07 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 Abida Medrano LPMOLLY [facility] & [place] 11/07/2022 14:18:25 08/31/19 06 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 Abida Medrano ASHLYN [facility] & [place] 11/07/2022 14:18:25 08/31/18 94 Tonsillectomy/A denoidectomy completed Abida Medrano LPMOLLY [facility] & [place] 11/07/2022 08:52:47 Imaging Results Imaging Date Name Status LastModified by Organiz ation Details LastModified Time 07/30/2022 [place] [facility] mammo w/CAD bilat completed [address] - Physical Therapy [address] [place], [address], 08/01/2022 12:31:29 07/30/2022 MAMMO, screening, digital, bilateral completed [address] ([facility]) [address] [place], [address], 08/01/2022 12:31:18 03/27/2023 US, breast, unilateral, limited completed [address] - Physical Therapy [address] [place] [address], [address], 03/30/2023 06:20:19 Procedure Notes None recorded. Medical Equipment None Reported. Allergies Allergen ID Allergen Name Allergen Category Reaction Reaction Severity Criticality Documentation Date Start Date Code Code System Note Provider Name and Address Organization Details Recorded Time [id number] No known allergy (situatio n) Not available Not available Not available Not available 12/18/2023 [id number] SNOMED Danna raymond HELEN Mitchell GOLDBERG [facility] & [place] 09:08:52 Medications Name Sig Start Date Stop Date Status Note LastModified by Organization Details LastModified Time Miralax 17 gram/dose oral powder Take 17 g twice a day by oral route. 12/17 completed Not Available Not Available Not Available lamotrigine 150 mg tablet TAKE 1 TABLET BY MOUTH ONCE DAILY active Not Available Not Available No t Available triazolam 0.25 mg tablet TAKE ONE TABLET BY MOUTH ONE HOUR PRIOR TO DENTAL APPOINTME NT. DO NOT DRIVE WHILE TAKING 12/08 completed Not Available Not Available Not Available trazodone 50 mg tablet 11/06 completed Not Available Not Available Not Available azithromyci n 250 mg tablet TAKE 2 TABLETS BY MOUTH ON DAY 1, AND THEN TAKE 1 TABLET BY MOUTH ONCE A DAY ON DAY 2 THROUGH DAY 5 12/17 completed Not Available Not Available Not Available ibuprofen 800 mg tablet TAKE 1 TABLET BY MOUTH EVERY 8 HOURS NEEDED FOR PAIN active Not Available Not Available No t Available fluconazole 150 mg tablet TAKE 1 TABLET BY MOUTH ONCE DAILY FOR 5 DAYS 12/17 completed Not Available Not Available Not Available sumatriptan 100 mg tablet TAKE 1 TABLET BY MOUTH TWICE DAILY NEEDED active Not Available Not Available No t Available fluconazole 200 mg tablet TAKE ONE TABLET BY MOUTH A ONE-TIME DOSE 11/06 completed Not Available Not Available Not Available sumatriptan 25 mg tablet TAKE 1 TABLET BY MOUTH ONCE DAILY NEEDED FOR 30 DAYS active Not Available Not Available No t Available prednisone 20 mg tablet TAKE 3 TABLETS BY MOUTH ONCE DAILY FOR 5 DAYS THEN 2 TABS ONCE DAILY FOR 5 DAYS, THEN 1 TAB ONCE DAILY FOR 5 DAYS active Not Available Not Available No t Available ciprofloxac in 500 mg tablet TAKE 1 TABLET BY MOUTH EVERY 12 HOURS FOR 5 DAYS 12/17 completed Not Available Not Available Not Available omeprazole 40 mg capsule,del ayed release Take 1 capsule every day by oral route in the morning for 30 days. 2023 active Not Available Not Available Not Avai lable triamcinolo ne acetonide 0.1 % topical cream APPLY CREAM TOPICALLY TWICE DAILY FOR 14 DAYS active Not Available Not Available No t Available vancomycin 125 mg capsule TAKE 1 CAPSULE BY MOUTH 4 TIMES DAILY FOR 10 DAYS active Not Available Not Available No t Available ondansetron 8 mg disintegrat ing tablet DISSOLVE 1 TABLET IN MOUTH 4 TIMES DAILY NEEDED FOR 30 DAYS active Not Available Not Available No t Available Zofran 4 mg tablet Take 1 tablet 3 times a day by oral route as needed for 3 days. 2022 active Not Available Not Available Not Avai lable amoxicillin 875 mg tablet TAKE 1 TABLET BY MOUTH TWICE DAILY FOR 10 DAYS 12/17 completed Not Available Not Available Not Available montelukast 10 mg tablet 12/17 completed Not Available Not Available Not Available mirtazapine 15 mg tablet TAKE 1/2 TO 1 (ONE-HALF TO ONE) TABLET BY MOUTH AT BEDTIME 12/17 completed Not Available Not Available Not Available azelastine 137 mcg (0.1 %) nasal spray USE 1 TO 2 SPRAY(S) IN EACH NOSTRIL TWICE DAILY NEEDED 11/06 completed Not Available Not Available Not Available ibuprofen 600 mg tablet TAKE 1 TABLET BY MOUTH EVERY 6 HOURS NEEDED, TAKE WITH FOOD 11/07 completed Not Available Not Available Not Available albuterol sulfate HFA 90 mcg/actuati on aerosol inhaler 11/06 completed Not Available Not Available Not Available ipratropium bromide 42 mcg (0.06 %) nasal spray USE 2 SPRAY(S) IN EACH NOSTRIL TWICE DAILY FOR 30 DAYS 11/06 completed Not Available Not Available Not Available ondansetron 4 mg disintegrat ing tablet PLACE 1 TABLET ON THE TONGUE AND ALLOW TO DISSOLVE ORALLY EVERY 8 HOURS FOR 30 DAYS 10/07 completed Not Available Not Available Not Available cefdinir 300 mg capsule TAKE 1 CAPSULE BY MOUTH TWICE DAILY FOR 7 DAYS 12/17 completed Not Available Not Available Not Available fluoxetine 20 mg capsule TAKE 1 CAPSULE BY MOUTH ONCE DAILY 12/17 completed Not Available Not Available Not Available dicyclomine 10 mg capsule TAKE 1 CAPSULE BY MOUTH THREE TIMES DAILY NEEDED FOR 7 DAYS 12/17 completed Not Available Not Available Not Available lamotrigine 100 mg tablet 11/06 completed Not Available Not Available Not Available amoxicillin 875 mg-potassiu m clavulanate 125 mg tablet TAKE 1 TABLET BY MOUTH TWICE DAILY FOR 10 DAYS 12/17 completed Not Available Not Available Not Available Microgestin 1/20 (21) 1 mg-20 mcg tablet TAKE 1 TABLET BY MOUTH ONCE DAILY 12/17 completed Not Available Not Available Not Available BD Ultra-Fine Mini Pen Needle 31 gauge x 3/16 USE 1 ONCE DAILY 12/08 completed Not Available Not Available Not Available levocetiriz ine 5 mg tablet marianela rose 12/17 completed Not Available Not Available Not Available Mucus Relief ER 600 mg tablet, extended release 11/06 completed Not Available Not Available Not Available Lo Loestrin Fe 1 mg-10 mcg (24)/10 mcg (2) tablet 11/06 completed Not Available Not Available Not Available Saxenda 3 mg/0.5 mL (18 mg/3 mL) subcutaneou s pen injector active Not Available Not Available Not Available Nasal Allergy 55 mcg spray aerosol 11/06 completed Not Available Not Available Not Available Trulance 3 mg tablet TAKE 1 TABLET BY MOUTH ONCE DAILY active Not Available Not Available No t Available Gemtesa 75 mg tablet Take 1 tablet every day by oral route. 2023 active Not Available Not Available Not Avai norbert Menjivar COVID-19 Ag Self Test kit 11/06 completed Not Available Not Available Not Available Zepbound 10 mg/0.5 mL subcutaneou s pen injector INJECT 1 SYRINGE SUBCUTANE OUSLY ONCE A WEEK active Not Available Not Available No t Available Zepbound 5 mg/0.5 mL subcutaneou s pen injector INJECT 1 SYRINGE (0.5ML) SUBCUTANE OUSLY ONCE A WEEK active Not Available Not Available No t Available Zepbound 7.5 mg/0.5 mL subcutaneou s pen injector INJECT 7.5MG (0.5ML) SUBCUTANE OUSLY ONCE WEEKLY active Not Available Not Available No t Available Vitals Date Recorded Body height Body mass index (BMI) Body weight Body temperature Heart rate Systolic blood pressure Diastolic blood pressure Provider Name and Address Organization Details Last Updated DateTime 3 177.8 cm 32.4 kg/m2 492506. 88 g 99.2 [degF] 87 /min 126 mm[Hg] 79 mm[Hg] Abida Keenan [place] [facility] & [place] 3 14:17:40 Date Recorded Body height Body mass index (BMI) Body weight Body temperature Oxygen saturation Oxygen saturation in Arterial blood by Pulse oximetry Heart rate Systolic blood pressure Diastolic blood pressure Provider Name and Address Organization Details Last Updated DateTime 3 177.8 cm 31.1 kg/m2 45460.5 4 g 97.9 [degF] 99 % 99 % 111 /min 154 mm[Hg] 96 mm[Hg] Nereida Paris [facility] & [place] 08:26:57 Date Recorded Body height Body mass index (BMI) Body weight Body temperature Provider Name and Address Organization Details Last Updated DateTime 12/18/2023 177.8 cm 29.4 kg/m2 62448.44 g 97.5 [degF] Zainab Barahona [facility] & [place] 12/18/2023 09:07:52 Social History Question Answer Notes LastModified by Vupen Details LastModified Time Tobacco Smoking Status Former Smoker Abida Keenan null, [facility] & [place] 11/07/2022 08:52:42 Do You Have An Advance Directive? No Information not available 11/07/2022 What Is Your Level Of Alcohol Consumption? Occasional Information not available 11/07/2022 Are You Blind Or Do You Have Difficulty Seeing? No Information not available 11/07/2022 Are You Passively Exposed To Smoke? No Information no t available 11/07/2022 Do You Or Have You Ever Used Smokeless Tobacco? Never Used Smokeless Tobacco Information not available 11/07/2022 How Much Tobacco Do You Smoke? No Information not available 11/07/2022 Do You Feel Stressed (tense, Restless, Nervous, Or Anxious, Or Unable To Sleep At Night)? [id number] Information not available 11/07/2022 Do You Use Any Illicit Or Recreational Drugs? No Information not available 11/07/2022 How Many Years Have You Smoked Tobacco? 16 Information not available 11/07/2022 Sex: Female Functional Status Question Answer Note LastModified by Vupen Details LastModified Time What is your exercise level? Occasional Information not available 11/07/2022 Mental Status None recorded. Family History Relationship Description Onset Age of this Age Resolved Age Notes LastModified by Organization Details LastModified Time Father Heart disease pt. added direct ly (10/07) CHART_MERGE Not available 12/10/2023 16:18:36 Father Hearing loss pt. added direct ly (10/07) CHART_MERGE Not available 12/10/2023 16:18:36 Mother Chronic obstructive pulmonary disease pt. added direct ly (10/07) CHART_MERGE Not available 12/10/2023 16:18:36 Mother Hypertensive disorder pt. added direct ly (10/07) CHART_MERGE Not available 12/10/2023 16:18:36 Medical History Condition Response Reflux/GERD Y Gynecological History Statement/Question Response Abnormal Pap N 2022 Flow Light Date of Last Colonoscopy 01/29/2017 Date of LMP 09/29/2022 Sexually Active? Y Menses Monthly Y Duration of Flow (days) 5 Date of Last Pap Smear 08/31/2021 Current Control Method Tubal Ligat ion Obstetrics History GPAL:G 0 P 0 0 0 0 Past Encounters Encounter ID Performer Location Encounter Start Date Encounter Closed Date Diagnosis/Indication Diagnosis SNOMED-CT Code Diagnosis ICD10 Code Diagnosis Note [id number] José Luis Parker MD [address] [place] [address] 08/04/2022 08:13:44 08/04/2022 08:37:17 Influenza-like symptoms 161484660 R68.89 [id number] Marianela Rose MD [facility] [address] [address] 10/10/2022 15:16:51 10/10/2022 16:33:11 Vasomotor rhinitis 3609049 J30.0 [id number] Marianela Rose MD [facility] [address] [address] 11/07/2022 14:12:33 11/07/2022 14:35:48 Vasomotor rhinitis 3358691 J30.0 Nasal endoscopy showed the patient has healed well, Clarifix procedure was successful and patient is pleased. We discussed her discontinu ing her atrovent nasal spray and OTC antihistam ine. I advised her to only take these if she feels as though she needs them in peak seasons. I will see her back as needed. [id number] José Luis Parker MD [address] [place] [address] 12/08/2022 08:15:03 12/08/2022 09:08:19 Fever 143756656 R50.9 Viral gastroenteritis 11 7843697 A08.4 [id number] Melchor Kirk Jr, MD [facility] [address] [address] 12/18/2023 08:46:43 12/18/2023 09:52:23 Overactive urinary bladder 738644562 N32.81 Patient with lower urinary tract symptoms consistent with overactive bladder. She is emptying her bladder out adequately . We will try her on a course of Gemtesa. We also discussed decreasing her caffeine and limiting her fluids to 60-70 oz per day. Kidney stone 92837919 N2 0.0 renal ultrasound reveals a 6 mm stone in the patient's left kidney. She is asymptomat ic and we discussed treatment options. Watchful waiting was favored. Microscopic hematuria 19 3617675 R31.29 we discussed possible causes of microscopi c hematuria including the nonobstruc ting stone in her left kidney, urinary tract infections and chronic cystitis. We will continue to monitor. Health Concerns Section Related Observation LastModified by Organization Detai ls LastModified Time None Recorded Concern Status LastModified by Organization Details LastModified Time None Recorded Advance Directives Directive N: Payers Encounter Date Sequence Insurance Name Policy Number Policy Palumbo Covered Member ID Palumbo Member ID Guarantor Name 08/04/2022 1 [place] [id number] A Moises Hinson [id number] Erin M Hinson 10/10/2022 1 [place] [id number] A Moises Hinson [id number] Erin M Hinson 11/07/2022 1 [place] [id number] Shima De Leon Hinson [id number] Erin M Hinson 12/08/2022 1 [place] [id number] A Moises Hinson [id number] Erin M Hinson 12/18/2023 1 [place] [id number] A Moises Hinson [id number] Erin Cates Sravan Notes Date Note Type Note Provider Name and Address Organization Details Recorded Time 11/07/2022 text/html 42yo female in t he office today following up on her VR s/p Clarifix procedure that was done in our office on 10/10/22. States she was tender for several days after. She is no longer having to carry around tissue as she isn't having a runny nose anymore. She is very pleased with her results. Marianela Rose MD [address], [place], [address], [facility] & [place] 11/07/2022 14:52:10 12/08/2022 text/html She is here for issues with exposure to COVID and GI issues. What has COVID another a flu. Over the weekend she started having some GI issues with abdominal cramping spasm and fevers. Diarrhea associated. No nausea vomiting no loss of taste or smell. José Luis Parker MD [address], [place], [address], [facility] & [place] 12/08/2022 10:22:40 12/18/2023 text/html Patient is a 43-year-old white female with recent urinary urgency and bladder pain. She states a long history of low back pain and constipation. A renal ultrasound was ordered by her primary care physician showing a 6 mm stone in her left kidney that was characterized as likely nonobstructing. Patient denies any flank pain or hematuria, fevers or chills. Her urinary symptoms consist of urgency, stopping and starting, urgency and frequency 10 times a day. She admittedly drinks a lot of fluid during the day. She gets up at night twice. she drinks 2 cups of coffee in the morning but then only water. Her bladder scan today shows a 60 cc residual. Melchor Kirk Jr, MD [address] [place] [address], [address], [place], [address], [facility] & [place] 12/27/2023 22:08:45 OBGyn Episode No OBEpisode recorded.
== END 2024-12-14 23:59 | disposition home or self-care (01) ==
LOC: LAB.DROPOF 12-15 09:04
PROVIDERS: PCP Nurse Practitioner Family; Visit Provider Nurse Practitioner Family
DX: R31.9 Hematuria, unspecified (principal)
CPT/HCPCS: 87086

== ENCOUNTER 2025-05-03 15:56 | Outpatient (CLI) | payer BC, OTHER, SELFPAY ==
--- NOTE | 2025-05-03 16:00 | US_ITS ---
PROCEDURE: US TRANSVAGINAL CLINICAL INDICATION: abnormal uterine bleeding COMPARISON: US US TRANSVAGINAL from 12/14/2023 FINDINGS: Transvaginal and transabdominal sonographic images of the pelvis were obtained. UTERUS: 8.3cm x 5.0cmx 5.2cm anteverted with a combined endometrial thickness of 8.4mm. Fibroid 1. A fundal fibroid measuring 1.2 cm x 1.2 cm x 1.1 cm. Fibroid 2. 2.1 cm x 1.7 cm x 1.9 cm. LEFT OVARY: 2.0cmx1.2cmx1.3cm with a volume of 1.5ml. RIGHT OVARY: 3.0cmx 1.3cmx1.6 cm with a volume of 3.2ml. Both ovaries are seen and appear normal. Doppler flow to both ovaries are seen. There is no fluid in the cul-de-sac. IMPRESSION: 1. Anteverted uterus with a slightly thickened endometrium measuring 8.4 mm. The endometrium was difficult to visualize. There are at least 2 fibroids seen. There is a fundal fibroid measuring 1.2 cm and a 2nd posterior fibroid measuring 2.1 cm. 2. Both ovaries could not be seen transvaginally. Transabdominally the ovaries are seen and appear normal. 3. No fluid in the cul-de-sac. Dictated by: Brody Villarreal MD 05/03/2025 19:45 Brody Villarreal MD in OV 05/03/2025 19:45
== END 2025-05-03 23:59 | disposition home or self-care (01) ==
LOC: RAD 15:57
PROVIDERS: Visit Provider Obstetrics & Gynecology
DX: D25.9 Leiomyoma of uterus, unspecified (principal); N85.4 Malposition of uterus; R93.89 Abnormal findings on diagnostic imaging of other specified body structures
CPT/HCPCS: 76830

== ENCOUNTER 2025-05-05 06:50 | Outpatient (CLI) | payer BC, OTHER, SELFPAY ==
--- NOTE | 2025-05-05 07:00 | CT_ITS ---
FINAL REPORT TECHNIQUE: Thin section axial images were obtained through the paranasal sinuses without contrast. Reconstruction images were obtained from the axial data. Exam was performed using dose reduction techniques such as automated exposure control, adjustment of the mA and kV according to patient size, and use of iterative reconstruction technique. CLINICAL HISTORY: eval and treat COMPARISON: None FINDINGS: There is mucoperiosteal thickening in the bilateral maxillary and right ethmoid sinuses. No air-fluid levels are identified. Postoperative changes of bilateral maxillary antrectomy's are noted. The nasal septum is deviated to the right. The mastoid air cells are clear. Remaining soft tissues are unremarkable. IMPRESSION: Mucoperiosteal thickening of the bilateral maxillary and right ethmoid sinuses, with postoperative changes of bilateral maxillary antrectomies, consistent with chronic sinusitis. Reviewed, Interpreted and Dictated by Juliana Puldio MD Transcribed by Love Lawson Authenticated and [facility]
--- NOTE | 2025-05-05 08:00 | FL_ITS ---
FINAL REPORT CLINICAL HISTORY: getting food stuck FOOD AND DRINKS GETTING STUCK HAS TO CLEAR THROAT SOMETIMES DOESNT HELP 32.39MgY DAP:464.74 MgY fluoro time .48 seconds FINDINGS: ESOPHAGRAM HISTORY: Dysphagia , feels like food getting stuck in throat. TECHNIQUE: Patient ingested thick and thin barium contrast. Effervescent crystals were also administered. Spot films were obtained. 43 images were saved. FINDINGS: The esophagus is normal. There is no gastroesophageal reflux demonstrated. No mucosal defects are seen. Motility appears normal. No changes of esophagitis are evident. 13 mm Barium tablet passes easily through the esophagus and into the stomach. FLUROSCOPY TIME: 48 seconds RADIATION DOSE IN REFERECE AIR KERMA: 32.39 mGy IMPRESSION: Unremarkable esophagram. Reviewed, Interpreted and Dictated by Juliana Pulido MD Transcribed by Isaura Lee PA-C Authenticated and [facility]
[2025-05-05] MEDS: BARIUM SULFATE(LIQUID E-Z-PAQUE);355ML BOTTLE 355 ML PO (08:31)
[2025-05-05] MEDS: E-Z-GASII EFFERVESCENT GRANULES;1PK 1 EACH PO (08:31)
[2025-05-05] MEDS: BARIUM SULFATE (E-Z-HD 340GM);135ML BOTTLE 135 ML PO (08:31)
== END 2025-05-05 23:59 | disposition home or self-care (01) ==
LOC: RAD 06:50
PROVIDERS: PCP Nurse Practitioner Family; Visit Provider Nurse Practitioner
DX: J32.9 Chronic sinusitis, unspecified (principal); R93.0 Abnormal findings on diagnostic imaging of skull and head, not elsewhere classified; R13.10 Dysphagia, unspecified; Z87.09 Personal history of other diseases of the respiratory system; Z98.890 Other specified postprocedural states
CPT/HCPCS: 70486; 74220